=== PATIENT | male | born 2000 | race Caucasian/White ===

== ENCOUNTER 2020-06-17 13:02 | Emergency (ER) | payer OTHER ==
[2020-06-17 14:46] LABS: HEMOGLOBIN 16.8 gm/dl (14.0-17.5); RED BLOOD COUNT 5.42 M/UL (4.20-5.50); WHITE BLOOD COUNT 6.8 K/UL (4.5-11.0)
[2020-06-17 15:21] LABS: BUN/CREATININE RATIO 16 (0-10)
[2020-06-17] MEDS ORDERED: ANTIVERT 12.512.5 MG PO (16:38)
== END 2020-06-17 16:53 | disposition home or self-care (01) ==
LOC: ER1 13:02
PROVIDERS: Family Medicine
DX: R42 Dizziness and giddiness (principal); H93.8X9 Other specified disorders of ear, unspecified ear; F17.210 Nicotine dependence, cigarettes, uncomplicated; Z20.822 Contact with and (suspected) exposure to COVID-19
CPT/HCPCS: 0240U; 36415; 80053; 84439; 84443; 85025; 93005; 99284